=== PATIENT | female | born 1970 | race Caucasian/White ===

== ENCOUNTER 2017-10-30 15:09 | Emergency (ER) | payer MEDICAID ==
[~2017-10-30] VITALS: Ht 165.1 cm; Wt 101.0 kg
[2017-10-30] MEDS ORDERED: METO-396 PO (15:19)
[2017-10-30] MEDS ORDERED: ASPI-986 PO (15:20)
[2017-10-30] MEDS ORDERED: HYDR12.54 PO (15:20)
[2017-10-30] MEDS ORDERED: ONDANSETRON HCL 4MG/2ML VIAL IV STA (16:15)
[2017-10-30] MEDS ORDERED: SODIUM CHLORIDE 0.9% 1,000 ML IV ONE (16:15)
[2017-10-30] MEDS ORDERED: KETOROLAC 30MG/ML VIAL IV STA (16:15)
[2017-10-30 16:58] LABS: BASOPHILS % 0.5 % (0.0-2.0); EOSINOPHILS % 1.3 % (0.0-5.0); HEMATOCRIT. 34.6 % (36.0-48.0); HEMOGLOBIN. 11.2 g/dL (12.0-16.0); LYMPHOCYTES % 13.7 % (20.0-50.0); MEAN CORPUSCULAR HEMOGLOBIN 27.4 pg (28.0-32.0); MEAN CORPUSCULAR VOLUME 84.9 fL (81.0-99.0); MEAN PLATELET VOLUME 8.7 fl (7.4-10.4); MONOCYTES % 5.8 % (2.0-8.0); NEUTROPHILS % 78.7 % (40.0-76.0); PLATELET 236 x1000/uL (130-400); RED BLOOD CELL COUNT 4.08 mill/uL (4.2-5.4); RED CELL DISTRIBUTION WIDTH 14.8 % (11.6-14.6)
[2017-10-30 17:04] LABS: CHLORIDE 104 mEq/L (98-107)
[2017-10-30 17:12] LABS: HCG SCREEN NEGATIVE
[2017-10-30 19:07] VITALS: BP 135/66
== END 2017-10-30 19:07 | disposition home or self-care (01) ==
LOC: ER 16:06
DX: R42 Dizziness and giddiness (principal); R51 Headache; R11.0 Nausea; R20.0 Anesthesia of skin; I10 Essential (primary) hypertension; Z79.82 Long term (current) use of aspirin
CPT/HCPCS: 36415; 80048; 84703; 85025; 96361; 96374; 99284; J2405; J7030